=== PATIENT | female | born 2000 | race Caucasian/White ===

== ENCOUNTER 2021-10-25 16:20 | Emergency (ER) | payer OTHER, SELFPAY ==
[2021-10-25 16:44] VITALS: BP 122/73; PULSE 87; RESP 14; TEMP 36.5; O2SAT 95; BMI 28.1
--- NOTE | 2021-10-25 19:09 | PC.NURSE ---
Patient normally wears glasses but didn't bring them
[2021-10-25] MEDS: PROPARACAINE 0.5% OPHTH SOL 1 DROPS EYE-LEFT (19:57)
[2021-10-25] MEDS: FLUORESCEIN 1 MG STRIP EYE-LEFT (19:58)
--- NOTE | 2021-10-25 20:21 | ED.EYEPROB ---
HPI - Eye Problem <Cari Loja PA-C - Last Filed: 10/25/21 20:51> General Chief complaint: Eye Problems Stated complaint: Left Eye Infection Time Seen by Provider: 10/25/21 18:53 Source: patient Mode of arrival: Ambulatory History of Present Illness HPI Narrative: Patient is a 20-year-old female presenting with increasing left eye pain and swelling for the past 10 days. Pronouns are he/him/his. He went to his primary care provider who prescribed him olopatadine drops. He states his symptoms have not improved despite taking these drops as prescribed, and this morning he woke up with eyelid swelling, unable to open his eye, and lots of pus in his eye. Pain is exacerbated by extraocular movements and light. He describes his pain as a 4/10 during extraocular movements but will have intermittent and stabbing pain that he rates a 7/10. He additionally reports left sinus pressure, left ear pain, and left clear nasal drainage. He denies any headache, dizziness, fever, nausea or vomiting. He wears glasses but does not to wear contacts. He has had no prior surgeries or previous issues with this eye. He has not taken anything for pain. Related Data Previous Rx's Medication Instructions Recorded erythromycin 5 mg/gram (0.5 %) eye 1 cm EYE-LEFT QID 7 Days #1 g 10/25/21 ointment Allergies Allergy/AdvReac Type Severity Reaction Status Date / Time No Known Drug Allergies Allergy Verified 10/25/21 16:51 Review of Systems <Cari Loja PA-C - Last Filed: 10/25/21 20:51> Review of Systems Narrative: GENERAL: Denies fatigue, fever, or chills HEENT: See HPI. RESPIRATORY: Denies shortness of breath, cough, or wheezing CARDIOVASCULAR: Denies chest pain, pressure, palpitations, or edema GASTROINTESTINAL: Denies, nausea, vomiting, changes in bowel movements, or abdominal pain : Denies dysuria, frequency, hematuria, or flank pain MUSCULOSKELETAL: Denies weakness, arthralgias, or myalgias SKIN: No rash, pruritis, or erythema NEUROLOGIC: Denies weakness, dizziness, headache, numbness, tingling or confusion PSYCHIATRIC: No concerning psychosocial issues. Patient History <Cari Loja PA-C - Last Filed: 10/25/21 20:51> Social History Smoking Status: Never smoker Smoking Status: Never smoker Substance Use Type: does not use Exam <Cari Loja PA-C - Last Filed: 10/25/21 20:51> Narrative Exam Narrative: GENERAL: 20 year old patient appears stated age. Well-developed patient, in mild distress. HEAD: Atraumatic. Normocephalic. EYES: Unable to open left eye, no obvious signs of external swelling or cellulitis. Injected erythematous sclera. Reactive pupil. Able to perform EOMs, elicits pain. No purulent discharge noted. ENT: Nose without bleeding, purulent drainage. Throat without erythema, tonsillar hypertrophy or exudate. Airway patent. NECK: Trachea midline. Non tender CARDIOVASCULAR: Regular rate and rhythm without murmurs, gallops, or rubs. RESPIRATORY: Clear to auscultation. Breath sounds equal bilaterally. No wheezes, rales, or rhonchi. GASTROINTESTINAL: Abdomen soft, non-tender, nondistended. EXTREMITIES: No edema or joint tenderness. BACK: Nontender without deformity or crepitance. No flank tenderness. NEURO: AOx3. SKIN: No rash or erythema of visible areas Initial Vital Signs Initial Vital Signs: Vital Signs Temperature 97.7 F 10/25/21 16:44 Pulse Rate 87 10/25/21 16:44 Respiratory Rate 14 10/25/21 16:44 Blood Pressure 122/73 10/25/21 16:44 Pulse Oximetry 95 10/25/21 16:44 <Isaiah Silverman DO - Last Filed: 10/25/21 22:09> Initial Vital Signs Initial Vital Signs: Vital Signs Temperature 97.7 F 10/25/21 16:44 Pulse Rate 87 10/25/21 16:44 Respiratory Rate 14 10/25/21 16:44 Blood Pressure 122/73 10/25/21 16:44 Pulse Oximetry 95 10/25/21 16:44 Procedures <Cari Loja PA-C - Last Filed: 10/25/21 20:51> [facility] [place] Name of Procedure: Florescein eye stain Technique/Description of procedure performed: Fluorescein eye stain was performed. Left eye was numbed with 1 proparacaine drop prior to procedure. Fluorescin stain was administered, Slit lamp was used to examine eye, and showed a lateral corneal abrasion. No complications with the procedure. Patient tolerated procedure: Well Course <Cari Loja PA-C - Last Filed: 10/25/21 20:51> Orders Ordered: Discontinued Medications Fluorescein Sodium (Fluorescein 1 Mg Strip) 1 mg EYE-LEFT NOW ONE Stop: 10/25/21 19:56 Last Admin: 10/25/21 19:58 Dose: 1 mg Documented by: STEFANI Proparacaine HCl (Proparacaine 0.5% Ophth Cynthia) 1 drops EYE-LEFT NOW ONE Stop: 10/25/21 19:54 Last Admin: 10/25/21 19:57 Dose: 1 drop Documented by: STEFANI Vital Signs Vital signs: Vital Signs - 8 hr 10/25/21 16:44 10/25/21 20:39 Temperature 97.7 F Pulse Rate 87 99 H Respiratory Rate 14 18 Blood Pressure 122/73 110/68 Pulse Oximetry 95 95 <Isaiah Silverman DO - Last Filed: 10/25/21 22:09> Orders Ordered: Discontinued Medications Fluorescein Sodium (Fluorescein 1 Mg Strip) 1 mg EYE-LEFT NOW ONE Stop: 10/25/21 19:56 Last Admin: 10/25/21 19:58 Dose: 1 mg Documented by: STEFANI Proparacaine HCl (Proparacaine 0.5% Ophth Cynthia) 1 drops EYE-LEFT NOW ONE Stop: 10/25/21 19:54 Last Admin: 10/25/21 19:57 Dose: 1 drop Documented by: STEFANI Vital Signs Vital signs: Vital Signs - 8 hr 10/25/21 16:44 10/25/21 20:39 Temperature 97.7 F Pulse Rate 87 99 H Respiratory Rate 14 18 Blood Pressure 122/73 110/68 Pulse Oximetry 95 95 MDM - Eye Problem <Cari Loja PA-C - Last Filed: 10/25/21 20:51> MDM Narrative Medical decision making narrative: Patient is a 20-year-old female presenting with increasing eye pain and swelling for the past 10 days. Upon physical exam, there are no obvious signs of swelling or erythema externally. Left sclera was injected and erythematous, with no purulent discharge noted. I administered 1 drop of proparacaine which provided substantial pain relief, and patient was able to open and move eye more. I performed a fluorescein eye stain which showed a lateral corneal abrasion of his left eye. Based on the above, I prescribed patient erythromycin ointment. I instructed him to follow up with his primary care provider within the next week for further evaluation of his progress. I instructed him to return to the ER if he has increasing pain especially during extraocular movements, increased swelling, increased purluent drainage, or if he is still unable to open his eye. Findings and discharge diagnosis discussed with patient/family followed by verbalization of understanding Return precautions discussed with patient/family whom verbalize understanding. Discharge Plan Departure Patient Disposition: Home Clinical Impression: Corneal abrasion Qualifiers: Encounter type: initial encounter Laterality: left Qualified Code(s): S05.02XA - Injury of conjunctiva and corneal abrasion without foreign body, left eye, initial encounter Instructions: DI for Corneal Ulcer Activity Restrictions/Additional Instructions: *You have been diagnosed with a corneal abrasion of your left eye. You were prescribed an antibiotic sent to [facility], please take this as prescribed. Please follow-up with your primary care provider within the next week for further evaluation. If your symptoms worsen, your swelling increases, pain increases with eye movements, and you are still unable to open your eye please return back to the ER. *What to do: *Please continue to take your regular medications as directed. [X] New medication prescriptions sent to your pharmacy: [[facility]] [ ] New medication written as a paper prescription [ ] No new medications given *Please follow up with your primary care provider in 2-3 days, call for an appointment. Let them know you were seen in the Emergency Department and that we ask that you be seen in follow up. We will electronically transmit a record of today's note if your PCP is in our system *If you do not have a primary care provider please contact the [facility] at [phone] and they can help get you set up with a doctor in the community. *Return to Emergency Department if you should have any new, worsening or concerning symptoms, such as [fever greater than 101 F, shaking chills, worsening pain, persistent vomiting or other bothersome symptoms] Prescriptions: New erythromycin 5 mg/gram (0.5 %) ointment 1 cm EYE-LEFT QID 7 Days Qty: 1 0RF Referrals: Miscellaneous,Doctor, [Primary Care Provider] - <Isaiah Silverman DO - Last Filed: 10/25/21 22:09> Cosign ED Attending Cosignature Attestation: Dr Silverman Co-Sign Statement: I was available for consultation during this patient's emergency department visit. This chart is signed by myself for administrative purposes only. I did not have direct contact with this patient during this visit. They were seen independently by the APC.
[2021-10-25 20:39] VITALS: BP 110/68; PULSE 99; RESP 18; O2SAT 95
== END 2021-10-25 20:42 | disposition home or self-care (01) ==
PROVIDERS: Emergency Provider Physician Assistant
DX: S05.02XA Injury of conjunctiva and corneal abrasion without foreign body, left eye, initial encounter (principal)
CPT/HCPCS: 99282